=== PATIENT | female | born 1965 | race Caucasian/White ===

== ENCOUNTER 2018-04-21 19:52 | Emergency (ER) | payer SELFPAY ==
[~2018-04-21] VITALS: Ht 165.1 cm; Wt 76.4 kg
[2018-04-21 19:53] VITALS: Ht 165.1 cm; Wt 76.4 kg
[2018-04-21 20:38] LABS: BASOPHILS 0.4 % (0-2); EOSINOPHILS 3.1 % (0-7); HEMATOCRIT 37.8 % (36.0-48.0); HEMOGLOBIN 13.1 g/dL (12-16); IMMATURE GRANULOCYTES 0.4 % (0-5); LYMPHOCYTES 27.2 % (15-50); MCH 31.6 pg (26.0-34.0); MCHC 34.7 g/dL (31.0-37.0); MCV 91.3 fL (80.0-100.0); MEAN PLATELET VOLUME 10.1 fL (7.4-10.4); MONOCYTES 4.7 % (2-11); NEUTROPHILS 64.2 % (40-80); PLATELET COUNT 219 10x3/uL (130-400); RBC 4.14 10x6/uL (4.00-5.40); RDW 12.2 % (11.5-14.5); WBC 8.4 10x3/uL (4.8-10.8)
[2018-04-21 20:46] LABS: APTT 25.2 SECONDS (22.8-39.4); INR 0.96 (0.85-1.17); PROTIME 12.3 SECONDS (11.6-15.0)
[2018-04-21 20:51] LABS: ALBUMIN 3.5 g/dL (3.4-5.0); ANION GAP 15.1 mmol/L (8-16); BILIRUBIN - TOTAL 0.31 mg/dL (0.2-1.3); CALCIUM 8.4 mg/dL (8.5-10.1); CARBON DIOXIDE 24.5 mmol/L (21.0-32.0); CREATININE - SERUM 0.9 mg/dL (0.6-1.3); POTASSIUM - SERUM 3.6 mmol/L (3.5-5.1); PROTEIN - SERUM 7.4 g/dL (6.4-8.2)
[2018-04-21] MEDS ORDERED: SULFAMETHOXAZOL1 TA3 PO (20:56)
[2018-04-21] MEDS ORDERED: HYDROCODON-ACE1 EA10 PO (20:57)
[2018-04-21] MEDS ORDERED: ATIVAN1 MG PO (22:17)
[2018-04-21] MEDS ORDERED: IBUPROFEN800 MG PO (22:17)
[2018-04-21] MEDS ORDERED: FLAGYL500 MG PO (22:21)
[2018-04-21] MEDS ORDERED: CIPRO500 MG PO (22:21)
[2018-04-21 22:58] VITALS: BP 127/95
--- NOTE | 2018-05-04 09:41 | HP ---
PATIENT: NOEMY CARLSON MEDICAL RECORD: [id number] ACCOUNT: [id number] LOCATION:[place] : 65 ADMISSION DATE: 04/21/18 PCP: No PCP HISTORY AND PHYSICAL EXAMINATION CHIEF COMPLAINT: Attacked by a dog. HISTORY OF PRESENT ILLNESS: This is a 53-year-old white female who was attacked by a pit bull, which got a hold to her right leg around the calf area and caused some significant soft tissue damage. This attack occurred about 30 minutes prior to the patient presenting to the Emergency Room. She said the dog did not attack her anywhere else on her body. She had significant amount of bleeding at the time of the attack, but this has stopped since then. She has a good feeling in the leg with pain present, but no numbness and she has full function of the foot. The patient had been given Ancef and a tetanus shot prior to my visiting with the patient. PAST MEDICAL HISTORY: Hypertension. PAST SURGICAL HISTORY: None. MEDICATIONS: None. ALLERGIES: PENICILLIN. FAMILY HISTORY: Noncontributory. SOCIAL HISTORY: Denies tobacco, alcohol or drug use. REVIEW OF SYSTEMS: GENERAL: She denies fevers, chills or night sweats. No significant weight gain or weight loss. NEUROLOGIC: No headaches, seizures, strokes, or numbness. CARDIOVASCULAR: No chest pain, shortness of breath. RESPIRATORY: No cough or wheezing. GASTROINTESTINAL: No nausea, vomiting, diarrhea, constipation, or change in bowel movement. HEMATOLOGIC: No known bleeding disorders. MUSCULOSKELETAL: She reports pain with movement in the right lower extremity around the wounds. PHYSICAL EXAMINATION: VITAL SIGNS: Temperature 97, pulse 91, respirations 18, blood pressure 130/85, sats 97% on room air. GENERAL: She is a well-developed, well-nourished female, in no apparent distress. HEENT: Sclerae is nonicteric with normal dentition. CARDIOVASCULAR: She has regular rate and rhythm. RESPIRATORY: No acute distress and no wheezing. SKIN: No rashes, lesions, or jaundice. She has 2 large wounds and 2 smaller wounds. present on the right lateral and posterior calf with no edema. She has full range of motion. The soft tissue of the anterior right calf has peeled back in an L-shaped fashion with some disruption of the underlying fascia to the lateral compartment of the right calf region. There were 2 other smaller puncture HISTORY AND PHYSICAL [id number] ALDO,NOEMY wounds between this and a larger opening on the posterior calf, which there is noticeable lack of tissue overlying the subcutaneous fat. The skin is rough at the edges with no signs of any purulence and no sign of any active bleeding. IMAGING: The patient has had an x-ray of the right fib which shows no sign of any bony injuries. LABORATORY DATA: White blood cell count 8.4, hemoglobin 13.1, platelets 219. INR 0.96, sodium 139, potassium 3.6, chloride 103, bicarbonate 24.5, BUN 16, creatinine 0.9. LFTs within normal limits other than an elevated ALT of 104. ASSESSMENT AND PLAN: A 53-year-old white female status post dog attack with soft tissue injury to the right lower extremity -- the patient's injuries were repaired at bedside under local anesthesia. She was discharged home after the procedure with pain medication and antibiotics. The patient is to follow up with me in clinic in 2-3 weeks. TRANSINT:[id number] Voice Confirmation ID: [id number] DOCUMENT ID: [id number] BJ CHRISTENSEN MD at 0941 CC: [id number] DICTATION DATE: 04/24/18 1424 LEATHER FITTER: 04/24/18 1452 DEP ER 04/21/18 [id number] [place] [address]
--- NOTE | 2018-05-04 09:41 | OP ---
PATIENT NAME: NOEMY CARLSON MEDICAL RECORD: [id number] :65 LOCATION:[facility] ADMISSION DATE: SURGEON: HECTOR CHRISTENSEN MD DATE OF OPERATION: 04/21/2018 PREOPERATIVE DIAGNOSES: 1. Multiple lacerations to the right lower extremity. 2. Dog bite. 3. Hypertension. POSTOPERATIVE DIAGNOSES: 1. Multiple lacerations to the right lower extremity. 2. Dog bite. 3. Hypertension. PROCEDURE: Debridement and complex repair of right lower extremity dog bite lesions. SURGEON: Hector Christensen MD REPORT OF PROCEDURE: The patient's right lower extremity was prepped and draped in sterile fashion. A total of 30 mL of 1% lidocaine with epinephrine was infused into the surrounding tissues over two large bites in the right lateral and posterior calf region. The anterior lateral bite was an L-shaped bite with the tissue torn laterally. The underlying fascia was torn on its most lateral aspect with some exposure of some torn muscle tissue. There was one small area of bleeding, which was oversewn with a 3-0 Vicryl [id number] tie. The fascia was not amenable to closure. Since the opening was large enough, I just left it alone. I did a debridement of the edges of the skin in order to remove any of the thin tissue that was present. As we did this, there was good bleeding tissue that we were able to dissect down to. This left us with two nice clean cut edges in order to repair. The underlying tissue was elevated off of the fascia to help facilitate closure. The undermining of the tissue was done with blunt dissection. We then reapproximated the subcutaneous fatty tissue with multiple interrupted 3-0 Vicryls and the skin was then closed with a running 4-0 Monocryl. There was good approximation of the tissue and no sign of any necrosis. Just inferior to this, there was a small opening present, which was oversewn with a couple of interrupted 4-0 Monocryl. On the posterior aspect of the calf, the patient had a large bite with abscense of skin and fatty tissue. The underlying fascia appeared to be intact other than one single puncture site where I could see the muscle which was intact. The fascial tissue was left alone. We performed a sharp debridement of the edges of the tissue down to normal appearing fat and skin. The edges of the tissue we were going to have to be brought together in a stellate fashion just due to the specifics of the injury. The subcutaneous tissues were brought together with multiple interrupted 3-0 Vicryls. The overlying skin was then closed with running 4-0 Monocryl. The total length of the incisions were 14 cm for the anterior wound and 12 cm in a stellate fashion of the posterior wound. There was one other small wound that was present between these 2, which was small and only went down to the fatty tissue. This was a circular incision, which did not require any closure. I went ahead and washed all of these out with peroxide and Betadine solution at the beginning of the case. The patient had been given tetanus shot and a gram of Ancef during the procedure. COMPLICATIONS: None. OPERATIVE REPORT [id number] NOEMY CARLSON CONDITION: Stable. ANESTHESIA: Local. BLOOD LOSS: Minimal. Procedure was done in the ER at the bedside. DISPOSITION: Home with p.o. pain medication and antibiotics. TRANSINT:[id number] Voice Confirmation ID: [id number] DOCUMENT ID: [id number] HECTOR CHRISTENSEN MD at 0941 CC: [id number] DICTATION DATE: 04/24/18 1418 PLANT PHYSIOLOGY TEACHER: 04/24/18 1527 DEP ER 04/21/18 [address] [place] [address]
== END 2018-04-21 22:58 | disposition home or self-care (01) ==
LOC: D.ER 19:52
PROVIDERS: Emergency Medicine
DX: S81.852A Open bite, left lower leg, initial encounter (principal); W54.0XXA Bitten by dog, initial encounter; Y93.89 Activity, other specified; Y92.89 Other specified places as the place of occurrence of the external cause; I10 Essential (primary) hypertension

== ENCOUNTER 2018-05-29 07:53 | Emergency (ER) | payer MEDICAID ==
[~2018-05-29] VITALS: Ht 165.1 cm; Wt 76.4 kg
[~2018-05-29 07:53] MED LIST: ATIVAN1 MG PO; CIPRO500 MG PO; FLAGYL500 MG PO; HYDROCODON-ACE1 EA10 PO; IBUPROFEN800 MG PO; SULFAMETHOXAZOL1 TA3 PO
[2018-05-29 07:57] VITALS: Ht 165.1 cm; Wt 76.4 kg
[2018-05-29] MEDS ORDERED: CLEOCIN HCL300 MG PO (08:13)
[2018-05-29 08:31] VITALS: BP 155/101
== END 2018-05-29 08:30 | disposition home or self-care (01) ==
LOC: D.ER 07:53
DX: L03.115 Cellulitis of right lower limb (principal)